=== PATIENT | male | born 1995 | race African-American/Black ===

== ENCOUNTER 2024-10-10 05:03 | Day surgery (SDC) | payer OTHER ==
[2024-10-08 12:35] VITALS: BMI 27.1
[2024-10-10] MEDS ORDERED: PROPOFOL 40 ML ONE ×2 (10:04→10:36)
[2024-10-10] MEDS ORDERED: MIDAZOLAM HCL 2 MG/2 ML SINGLE DOSE VIAL ONE (10:09)
[2024-10-10] MEDS ORDERED: ONDANSETRON 4 MG/2 ML VIAL IVPUSH PRN (10:24)
[2024-10-10] MEDS ORDERED: ROCURONIUM BROMIDE 50 MG/5 ML SYRINGE ONE (10:40)
[2024-10-10] MEDS ORDERED: ACETAMINOPHEN INJECTION 100 ML ONE (10:49)
[2024-10-10] MEDS ORDERED: OXYMETAZOLINE 0.05% NASAL SOLUTION 15 ML BOTTLE NS ONE (11:00)
[2024-10-10] MEDS: ceFAZolin SODIUM 1 GM VIAL IVPB ONE (11:25)
[2024-10-10] MEDS: LIDOCAINE 1%/EPI 1:100000 (20 ML MULTI DOSE VIAL) INF ONE (11:31)
[2024-10-10] MEDS: OXYMETAZOLINE 0.05% NASAL SOLUTION 15 ML BOTTLE NS ONE (12:01)
[2024-10-10] MEDS: BACITRACIN ZINC 15 GM TUBE TOPICAL OINTMENT TP ONE (12:01)
[2024-10-10] MEDS ORDERED: PROPOFOL 20 ML ONE (12:09)
[2024-10-10] MEDS ORDERED: SUGAMMADEX SODIUM 200 MG/2 ML VIAL ONE (12:28)
[2024-10-10] MEDS: LACTATED RINGERS SOLUTION 1,000 ML IV SCH (13:27)
[2024-10-10] MEDS ORDERED: oxyCODONE HCL 5 MG TABLET ONE (14:45)
[2024-10-10] MEDS: oxyCODONE HCL 5 MG TABLET PO PRN (14:50)
[2024-10-10 15:33] VITALS: BP 139/71
[2024-10-10 15:37] VITALS: PULSE 68; RESP 18; TEMP 98
== END 2024-10-10 15:38 | disposition home or self-care (01) ==
LOC: JASU-SURG 05:03
PROVIDERS: ATTEND Otolaryngology
PROC: 09BM8ZZ Excision of Nasal Septum, Via Natural or Artificial Opening Endoscopic (ICD-10-PCS; principal; 2024-10-10 10:45)
PROC: 09TL8ZZ Resection of Nasal Turbinate, Via Natural or Artificial Opening Endoscopic (ICD-10-PCS; 2024-10-10 10:45)
DX: J34.2 Deviated nasal septum (principal); J34.3 Hypertrophy of nasal turbinates
CPT/HCPCS: 86850; 86900; 86901; 88304-TC; 94760; J0131